=== PATIENT | male | born 1955 | race Two or more races ===

== ENCOUNTER 2019-04-16 22:56 | Emergency (ER) | payer MEDICAID, OTHER ==
[~2019-04-16] VITALS: Ht 175.3 cm; Wt 90.7 kg
--- NOTE | 2019-04-16 23:00 | NUR ---
PT BIBOWNER FROM [facility]. PER LAURENCE, PT HAS BEEN EXPRESSING SUICIDAL THOUGHTS MORE FREQUENTLY. ALSO STATES PATIENT HAS BEEN MORE AGGRESSIVE. PT AAOX4. CALM AND COOPERATIVE. RESPIRATIONS EVEN AND UNLABORED. SKIN INTACT. AMBULATORY WITH STEADY GAIT. NO ACUTE DISTRESS NOTED AT THIS TIME. PT PLACED IN GOWN. BELONGINGS COLLECTED AND PLACED IN PATIENT LOCKER. SITTER AT BEDSIDE. WILL CONTINUE TO MONITOR.
--- NOTE | 2019-04-17 00:06 | NUR ---
sober living retort or condenser press operator, Snehal Freire [phone]
--- NOTE | 2019-04-17 00:10 | NUR ---
PT ATTEMPTING TO LEAVE. CONSTANTLY NEEDS TO BE REDIRECTED BACK TO ROOM. PT BACK VERBALLY/PHYSICALLY AGGRESSIVE. SECURITY AT BEDSIDE, ER AWARE
[2019-04-17] MEDS ORDERED: diphenhydrAMINE HCL 50 MG/ML VIAL ONE (00:11)
[2019-04-17] MEDS ORDERED: LORAZEPAM INJ 2 MG/ML VIAL ONE (00:11)
[2019-04-17] MEDS ORDERED: HALOPERIDOL LACTATE INJ 5 MG/ML VIAL ONE (00:11)
[2019-04-17] MEDS ORDERED: HALOPERIDOL LACTATE INJ 5 MG/ML VIAL IM ONE (00:30)
[2019-04-17] MEDS ORDERED: LORAZEPAM INJ 2 MG/ML VIAL IV ONE (00:30)
[2019-04-17] MEDS ORDERED: diphenhydrAMINE HCL 50 MG/ML VIAL IM ONE (00:30)
[2019-04-17 00:32] LABS: BASOPHILS # (AUTO) 0.1 /CMM (0.0-0.2); BASOPHILS % (AUTO) 0.5 % (0.0-2.0); EOSINOPHILS % (AUTO) 1.5 % (0.0-6.0); HEMATOCRIT 46 % (39-51); LYMPHOCYTES # (AUTO) 5.8 /CMM (0.8-4.8); LYMPHOCYTES % (AUTO) 50.7 % (20.0-44.0); MEAN CORPUSCULAR HGB CONC 33 g/dl (31.0-36.0); MEAN CORPUSCULAR VOLUME 92 fL (80-96); MONOCYTES # (AUTO) 0.7 /CMM (0.1-1.30); MONOCYTES % (AUTO) 6.5 % (2.0-12.0); NEUTROPHILS # (AUTO) 4.6 /CMM (1.8-8.9); NEUTROPHILS % (AUTO) 40.8 % (43.0-81.0); PLATELET COUNT (AUTO) 258 /CMM (150-450); RED BLOOD CELL COUNT(AUTO) 4.97 MIL/uL (4.5-6.0); WHITE BLOOD COUNT (AUTO) 11.4 K/uL (4.3-11.0)
[2019-04-17 00:36] LABS: CALCIUM, SERUM 8.6 mg/dL (8.5-10.1); CREATININE 0.9 mg/dL (0.6-1.3); POTASSIUM 4.1 mmol/L (3.5-5.1)
[2019-04-17 00:57] LABS: BILIRUBIN,DIRECT 0.1 mg/dL (0.0-0.2); BILIRUBIN,TOTAL 0.3 mg/dL (0.2-1.0); TOTAL PROTEIN, SERUM 7.8 g/dL (6.4-8.2)
[2019-04-17 00:58] LABS: SALICYLATE 1.6 mg/dL (2.8-20.0)
[2019-04-17 01:31] LABS: APPEARANCE,URINE Clear (CLEAR); BILIRUBIN,URINE Negative (NEGATIVE); BLOOD, URINE Negative Ery/uL (NEGATIVE); COLOR,URINE Yellow (YELLOW); KETONES,URINE Negative (NEGATIVE); LEUKOCYTE ESTERASE ,URINE Negative (NEGATIVE); NITRITE, URINE Negative (NEGATIVE); PH,URINE 5.5 (5.0-8.0); PROTEIN,URINE Negative (NEGATIVE); UGLUCOSE Negative (NEGATIVE); UROBILINOGEN,URINE 0.2 EU/dL (0.2)
--- NOTE | 2019-04-17 02:22 | NUR ---
PT RESTING COMFORTABLY IN BED. VITAL SIGNS STABLE. STILL ON MONITOR, SITTER AT BEDSIDE. WILL CONTINUE TO MONITOR
--- NOTE | 2019-04-17 04:28 | NUR ---
PT RESTING COMFORTABLY IN BED. VITAL SIGNS STABLE. STILL ON MONITOR. SITTER AT BEDSIDE, WILL CONTINUE TO MONITOR
--- NOTE | 2019-04-17 06:41 | NUR ---
Dr Saleh at bedside for eval.
--- NOTE | 2019-04-17 08:16 | NUR ---
Chela social worker clinical at bedside and spoke to the patient.
--- NOTE | 2019-04-17 08:38 | NUR ---
Social service consult requested by MD for possible suicidal ideations. Per MD notes, pt is a 64-year-old male with a history of chronic alcohol abuse brought to [facility] by the owners of his sober living facility. They report that he has been making suicidal statements for the last several days. States that his plan is to have another house member kill him. Also states that he has contacted his sister and made suicidal statements to her. IDENTITY MANAGEMENT CONSULTANT and RN Jaspal met with the pt bedside. Pt. is alert and oriented x 4. Pt's mood is congruent. Pt. states he resides at a sober living facility located at [address] [place] [address] in [place]. Pt currently is denying suicidal and homicidal ideations and is requesting to go back to his sober living. IDENTITY MANAGEMENT CONSULTANT contacted waste disposal leakage tester Snehal Freire [phone] who informed IDENTITY MANAGEMENT CONSULTANT she will accept pt back. Pt is unable to state if he has any psychiatric diagnoses. Pt to be discharged back to his sober living. and TRINO Borja have been updated with pt's discharge plan. No other social service needs are requested at this time.
--- NOTE | 2019-04-17 08:48 | NUR ---
SET UP BLS TRANSFER TO [facility] ETA OF 1100H.
[2019-04-17 11:33] VITALS: BP 121/77
--- NOTE | 2019-04-17 11:33 | NUR ---
REPORT GIVEN TO EMT FOR PT TRANSFER BACK TO [facility].
== END 2019-04-17 11:34 | disposition home or self-care (01) ==
LOC: ER 22:57
DX: R45.851 Suicidal ideations (principal); F10.10 Alcohol abuse, uncomplicated; F17.200 Nicotine dependence, unspecified, uncomplicated; Y90.7 Blood alcohol level of 200-239 mg/100 ml
CPT/HCPCS: 36415; 80048; 80076; 80305; 80307; 80329; 81001; 85025; 96372 ×2; 99284; G0480; J1200; J1630; J2060; 81000-TC